=== PATIENT | female | born 1965 | race Caucasian/White ===

== ENCOUNTER 2021-02-17 18:00 | Emergency (ER) | payer OTHER ==
--- OUTSIDE RECORDS SUMMARY | 2021-02-17 18:01 | XMS REPORT | Continuity of Care Document ---
:1965 Author Organization [facility] t Address [address] [place] [address] Care Team Providers Name Role Phone Unavailable Unavailable Unavailable Payers Payer Name Policy Type Policy Number Effective Date Expiration Date S ource Problems This patient has no known problems. Allergies, Adverse Reactions, Alerts Allergy Allergy Status Severity Reaction(s) Onset Inactive Treating Comm ents Source Name Type Date Date Clinician No Known DA Active U [facility] Allergie 2-11 Clear s 00:00: [place] [address] [facility] Medications This patient has no known medications. Procedures This patient has no known procedures. Results This patient has no known results.
[2021-02-17 20:02] LABS: Absolute Lymphocytes (CBC) 2.1 K/uL (0.7-4.9); Basophils % 0.5 % (0-1.3); Lymphocytes % 25.5 % (15.3-44.8); MPV 8.8 fL (7.6-11.3); RBC Red Blood Cell Count 4.79 M/uL (3.86-4.86)
[2021-02-17 20:03] LABS: Urine Blood Negative (Negative); Urine Glucose Negative (Negative); Urine Protein Negative (Negative); Urine Specific Gravity 1.025 (1.005-1.030); Urine pH 5.5 (5.0-7.0)
[2021-02-17 20:05] LABS: Protime INR 0.97
[2021-02-17 20:19] LABS: ALT/SGPT 24 U/L (12-78); AST/SGOT 15 U/L (15-37); Albumin 4.4 g/dL (3.4-5.0); Alkaline Phosphatase 108 U/L (45-117); BUN Blood Urea Nitrogen 17 mg/dL (7-18); Bicarbonate 28 mmol/L (21-32); Bilirubin Direct < 0.1 mg/dL (0-0.2); Bilirubin Total 0.4 mg/dL (0.2-1.0); Glucose Level 85 mg/dL (74-106); Potassium 3.8 mmol/L (3.5-5.1); Sodium Level 142 mmol/L (136-145)
[2021-02-17 20:34] LABS: Barbiturates NEGATIVE (NEGATIVE); Benzodiazepines NEGATIVE (NEGATIVE); Cocaine NEGATIVE (NEGATIVE); METHAMPHETAM NEGATIVE (NEGATIVE); Methadone NEGATIVE (NEGATIVE); Opiates NEGATIVE (NEGATIVE); Phencyclidine NEGATIVE (NEGATIVE); THC Cannibis NEGATIVE (NEGATIVE)
[2021-02-17 20:37] LABS: Urine Bacteria <20 /HPF (<20); Urine RBC <5 /HPF (NONE SEEN)
[2021-02-17 20:38] LABS: Urine Mucus LIGHT /HPF (NONE SEEN)
[2021-02-17] MEDS ORDERED: CEPHALEXIN 250 MG CAP ONE (21:27)
--- NOTE | 2021-02-17 23:18 | EDPHYS ---
Physician Documentation [facility] Name: Yanique Sky Age: 55 yrs Sex: Female : 1965 Arrival Date: 02/17/2021 Time: 18:08 Bed 4 Private MD: ED Physician Tommie Bhardwaj HPI: 02/17 22:05 This 55 yrs old Female presents to ER via Ambulatory with complaints of mh7 Mental Health. 22:05 The patient presents to the emergency department with depression, over a relationship, mh7 thinks significant other is cheating. 22:06 Onset: The symptoms/episode began/occurred 2 week(s) ago, and became worse 1 week(s) mh7 ago. Past psychiatric history: Prior diagnosis: no previous psychiatric diagnosis known, Psychiatric medications include: none, Primary psychiatric physician: the patient does not have a primary psychiatric physician, the patient has not had a prior suicide gesture, the patient does not have a previous inpatient psychiatric history, the patient's last psychiatric treatment was none. Associated signs and symptoms: Pertinent negatives: abdominal pain, anxiety, chest pain, chills, delusions, fever, hallucinations, headache, homicidal ideation, nausea, night sweats, palpitations, paranoia, shortness of breath, substance abuse, tremor, vomiting. Severity of symptoms: At their worst the symptoms were moderate 4 day(s) ago, in the emergency department the symptoms are unchanged. Historical: - Allergies: 19:00 No Known Allergies; vg1 - Home Meds: 19:00 Clonazepam Oral [Active]; vg1 - PMHx: 19:00 None; vg1 - Immunization history:: Adult Immunizations up to date. - Social history:: Smoking status: Patient denies any tobacco usage or history of. ROS: 22:06 Constitutional: Negative for fever, chills, and weight loss, Eyes: Negative for injury, mh7 pain, redness, and discharge, ENT: Negative for injury, pain, and discharge, Neck: Negative for injury, pain, and swelling, Cardiovascular: Negative for chest pain, palpitations, and edema, Respiratory: Negative for shortness of breath, cough, wheezing, and pleuritic chest pain, Abdomen/GI: Negative for abdominal pain, nausea, vomiting, diarrhea, and constipation, Back: Negative for injury and pain, : Negative for injury, bleeding, discharge, and swelling, MS/Extremity: Negative for injury and deformity, Skin: Negative for injury, rash, and discoloration, Neuro: Negative for headache, weakness, numbness, tingling, and seizure, Allergy/Immunology: Negative for hives, rash, and allergies, Endocrine: Negative for neck swelling, polydipsia, polyuria, polyphagia, and marked weight changes, Hematologic/Lymphatic: Negative for swollen nodes, abnormal bleeding, and unusual bruising. Exam: 22:06 Head/Face: Normocephalic, atraumatic. Eyes: Pupils equal round and reactive to light, mh7 extra-ocular motions intact. Lids and lashes normal. Conjunctiva and sclera are non-icteric and not injected. Cornea within normal limits. Periorbital areas with no swelling, redness, or edema. Neck: Trachea midline, no thyromegaly or masses palpated, and no cervical lymphadenopathy. Supple, full range of motion without nuchal rigidity, or vertebral point tenderness. No Meningismus. Chest/axilla: Normal chest wall appearance and motion. Nontender with no deformity. No lesions are appreciated. Cardiovascular: Regular rate and rhythm with a normal S1 and S2. No gallops, murmurs, or rubs. Normal PMI, no JVD. No pulse deficits. Respiratory: Lungs have equal breath sounds bilaterally, clear to auscultation and percussion. No rales, rhonchi or wheezes noted. No increased work of breathing, no retractions or nasal flaring. Abdomen/GI: Soft, non-tender, with normal bowel sounds. No distension or tympany. No guarding or rebound. No evidence of tenderness throughout. Back: No spinal tenderness. No costovertebral tenderness. Full range of motion. Skin: Warm, dry with normal turgor. Normal color with no rashes, no lesions, and no evidence of cellulitis. MS/ Extremity: Pulses equal, no cyanosis. Neurovascular intact. Full, normal range of motion. Neuro: Awake and alert, GCS 15, oriented to person, place, time, and situation. Cranial nerves II-XII grossly intact. Motor strength 5/5 in all extremities. Sensory grossly intact. Cerebellar exam normal. Normal gait. 22:06 Constitutional: The patient appears in no acute distress, alert, awake, Tearful 22:06 Psych: Behavior/mood is cooperative, depressed, Affect is calm, Oriented to person, place, time, Patient has no thoughts/intents to harm self or others. Judgement / Insight is normal. Memory is normal. Delusions/hallucinations are not present. Vital Signs: 18:49 BP 151 / 96; Pulse 85; Resp 18; Temp 97.9; Pulse Ox 97% ; Weight 68.04 kg; Height 5 ft. vg1 3 in. (160.02 cm); 20:54 BP 149 / 89; Pulse 78; Resp 18; Pulse Ox 98% on R/A; ak2 22:28 BP 114 / 68; Pulse 66; Resp 81; Pulse Ox 98% on R/A; ak2 23:36 BP 125 / 95; Pulse 60; Resp 16; Pulse Ox 98% ; rr5 18:49 Body Mass Index 26.57 (68.04 kg, 160.02 cm) vg1 MDM: 23:13 Differential diagnosis: depression, Suicidal ideation, homicidal ideation. Data [facility] reviewed: vital signs, nurses notes, lab test result(s), CBC, electrolytes, urinalysis. Data interpreted: Pulse oximetry: on room air is 98 %. Interpretation: normal. Counseling: I had a detailed discussion with the patient and/or guardian regarding: the historical points, exam findings, and any diagnostic results supporting the discharge/admit diagnosis, lab results, the need for outpatient follow up, to return to the emergency department if symptoms worsen or persist or if there are any questions or concerns that arise at home. Response to treatment: the patient's symptoms have markedly improved after treatment. 23:17 Patient medically screened. [facility] 02/17 19:43 Order name: Acetaminophen [facility] 02/17 19:43 Order name: Basic Metabolic Panel [facility] 02/17 19:43 Order name: CBC with Diff [facility] 02/17 19:43 Order name: ETOH Level; Complete Time: 22:[address] [facility] 02/17 19:43 Order name: Hepatic Function; Complete Time: 22:[address] [facility] 02/17 19:43 Order name: PT-INR; Complete Time: 22:[address] [facility] 02/17 19:43 Order name: Ptt, Activated; Complete Time: 22:[address] [facility] 02/17 19:43 Order name: Salicylate; Complete Time: 22:[address] [facility] 02/17 19:43 Order name: Urine Drug Screen; Complete Time: 22:35 5 02/17 19:44 Order name: Acetaminophen Level; Complete Time: 22:35 EDMS 02/17 19:44 Order name: Basic Metabolic Panel; Complete Time: 22:35 EDMS 02/17 19:44 Order name: CBC with Automated Diff; Complete Time: 22:35 EDMS 02/17 20:03 Order name: Urine Dipstick-Ancillary; Complete Time: 22:35 EDPA 02/17 20:07 Order name: Urine Microscopic Only rr 02/17 19:43 Order name: EKG; Complete Time: 19:44 rr5 02/17 19:43 Order name: EKG - Nurse/Tech; Complete Time: 19:50 rr5 02/17 19:43 Order name: IV Saline Lock; Complete Time: 19:50 5 02/17 19:43 Order name: Labs collected and sent; Complete Time: 19:50 5 02/17 19:43 Order name: Suicide Precautions; Complete Time: 19:50 5 02/17 19:43 Order name: Suicide Screening ([place]); Complete Time: 19:50 5 02/17 19:43 Order name: Urine Dipstick-Ancillary (obtain specimen); Complete Time: 20:07 5 02/17 19:43 Order name: Urine Test (obtain specimen); Complete Time: 20:07 5 02/17 20:07 Order name: Urine Culture [facility] 02/17 20:08 Order name: Urine Microscopic Only; Complete Time: 22:35 EDPA 02/17 20:08 Order name: Urine Culture EDPA 02/17 22:45 Order name: SARS-COV-2 RT PCR; Complete Time: 23:06 EDMS Administered Medications: 21:09 Drug: KeFLEX (cephalexin) 500 mg Route: PO; rr5 22:10 Follow up: Response: No adverse reaction rr5 Disposition Summary: 02/17/21 23:17 Discharge Ordered Location: Home [facility] Problem: an ongoing problem [facility] Symptoms: have improved [facility] Condition: Stable [facility] Diagnosis - Depression 7 - UTI/ Urinary tract infection, site not specified 7 Followup: [facility] - With: Private Physician - When: 1 - 2 days - Reason: Worsening of condition, Recheck today's complaints, Continuance of care, Re-evaluation by your physician Followup: [facility] - With: Juan Pablo Whitfield MD - When: 1 - 2 days - Reason: Worsening of condition, Recheck today's complaints Discharge Instructions: - Discharge Summary Sheet [facility] - Urinary Tract Infection, Adult, Gtem-[id number] [facility] - Major Depressive Disorder, Adult, [id number]-[id number] [facility] Forms: - Medication Reconciliation Form [facility] - Thank You Letter [facility] - Antibiotic Education [facility] - Prescription Opioid Use [facility] Prescriptions: - Cephalexin 500 mg Oral Capsule - take 1 capsule by ORAL route every 12 hours for 7 days; 14 capsule; Refills: 0, [facility] Product Selection Permitted Signatures: Dispatcher [employer] Levar Loving RN RN rr5 Aleshia Faith RN RN vg1 Tommie Bhardwaj MD MD [facility] Corrections: (The following items were deleted from the chart) 21:38 21:17 CORONAVIRUS+MR.LAB.BRZ ordered. EDPA EDMS
--- NOTE | 2021-02-17 23:18 | ER ---
Nurse's Notes [facility] Name: Yanique Sky Age: 55 yrs Sex: Female : 1965 Arrival Date: 02/17/2021 Time: 18:08 Bed 4 Private MD: Diagnosis: Depression;UTI/ Urinary tract infection, site not specified Presentation: 02/17 18:49 Chief complaint: Patient states: "For two years Mayela been trying to get some help vg1 because I have so much built up anger; I cry, Im depressed, I want to hurt people sometimes and sometimes I'm suicidal but of course I have suicidal thoughts but I'm not going to act on it. I called [facility] and spoke with Matilda' and they told me to come into the ED to get the intake process done." Pt denies SI/HI. Coronavirus screen: Client denies travel out of the [place] in the last 14 days. Ebola Screen: Patient negative for fever greater than or equal to 101.5 degrees Fahrenheit, and additional compatible Ebola Virus Disease symptoms. Initial Sepsis Screen: Does the patient meet any 2 criteria? No. Patient's initial sepsis screen is negative. Does the patient have a suspected source of infection? No. Patient's initial sepsis screen is negative. Risk Assessment: Do you want to hurt yourself or someone else? Patient reports no desire to harm self or others. Onset of symptoms was February 17, 2021. 18:49 Method Of Arrival: Ambulatory vg1 18:49 Acuity: JERZY 3 vg1 Triage Assessment: 19:00 General: Appears in no apparent distress. uncomfortable, Behavior is cooperative, vg1 anxious, crying. Pain: Denies pain. Historical: - Allergies: 19:00 No Known Allergies; vg1 - Home Meds: 19:00 Clonazepam Oral [Active]; vg1 - PMHx: 19:00 None; vg1 - Immunization history:: Adult Immunizations up to date. - Social history:: Smoking status: Patient denies any tobacco usage or history of. Screenin:51 Abuse screen: Denies threats or abuse. Denies injuries from another. Nutritional rr5 screening: No deficits noted. Tuberculosis screening: No symptoms or risk factors identified. Fall Risk IV access (20 points). Total Phipps Fall Scale indicates No Risk (0-24 pts). Assessment: 19:39 General: Appears in no apparent distress. comfortable, Behavior is calm, cooperative, rr5 appropriate for age, episodes of suicidal and homicidal ideation, denies suicidal or homicidal right now. Pain: Denies pain. Neuro: Level of Consciousness is awake, alert, obeys commands, Oriented to person, place, time. Cardiovascular: Capillary refill < 3 seconds Patient's skin is warm and dry. Respiratory: Airway is patent Respiratory effort is even, unlabored, Respiratory pattern is regular, symmetrical. Derm: Skin is intact, is healthy with good turgor, Skin temperature is warm. 20:54 Reassessment: Patient and/or family updated on plan of care and expected duration. Pain ak2 level reassessed. 21:20 Reassessment: Patient appears in no apparent distress at this time. Patient is alert, rr5 oriented x 3, equal unlabored respirations, skin warm/dry/pink. spoke to kale from [facility] information given. 22:21 Reassessment: [facility] screener at bedside. em 22:28 Reassessment: Patient and/or family updated on plan of care and expected duration. Pain ak2 level reassessed. 22:31 Reassessment: [facility] at the bedside. rr5 23:35 Reassessment: Patient appears in no apparent distress at this time. Patient is alert, rr5 oriented x 3, equal unlabored respirations, skin warm/dry/pink. discharge instruction given and explained without complaints made. Vital Signs: 18:49 BP 151 / 96; Pulse 85; Resp 18; Temp 97.9; Pulse Ox 97% ; Weight 68.04 kg; Height 5 ft. vg1 3 in. (160.02 cm); 20:54 BP 149 / 89; Pulse 78; Resp 18; Pulse Ox 98% on R/A; ak2 22:28 BP 114 / 68; Pulse 66; Resp 81; Pulse Ox 98% on R/A; ak2 23:36 BP 125 / 95; Pulse 60; Resp 16; Pulse Ox 98% ; rr5 18:49 Body Mass Index 26.57 (68.04 kg, 160.02 cm) vg1 ED Course: 18:08 Patient arrived in ED. as 19:00 Triage completed. vg1 19:00 Arm band placed on Patient placed in waiting room, Patient notified of wait time. vg1 19:38 Levar Dixon, RN is Primary Nurse. rr5 19:42 Tommie Bhardwaj MD is Attending Physician. 7 19:49 EKG done, by ED staff, reviewed by Tommie Bhardwaj MD. rr5 19:50 Inserted saline lock: 20 gauge in left forearm, using aseptic technique. Blood rr5 collected. 20:54 No provider procedures requiring assistance completed. ak2 20:55 Patient has correct armband on for positive identification. Placed in gown. Bed in low ak2 position. Patient has correct armband on for positive identification. Patient is placed in psych hold. 23:15 Juan Pablo Whitfield MD is Referral Physician. mh7 23:36 IV discontinued, intact, bleeding controlled, No redness/swelling at site. Pressure rr5 dressing applied. Administered Medications: 21:09 Drug: KeFLEX (cephalexin) 500 mg Route: PO; rr5 22:10 Follow up: Response: No adverse reaction rr5 Outcome: 23:17 Discharge ordered by MD. mh7 23:36 Discharged to home ambulatory. rr5 23:36 Condition: stable 23:36 Discharge instructions given to patient, Instructed on discharge instructions, follow up and referral plans. medication usage, Demonstrated understanding of instructions, follow-up care, medications, Prescriptions given X 1. 23:37 Patient left the ED. rr5 Addendum: 02/21/2021 12:43 Addendum: Culture Results: Positive urine culture. Phone call Attempt #1 Attempted to s s call to follow up with patient, however number on file is not a working number. If patient were to still have symptoms, it was recommended by KARLA Kemp to prescribe Augmentin 875 mg BID x 7 days. Signatures: Rafael Caicedo, RN Kayla Maldonado Shelby, RN RN Levar Dixon RN RN rr5 Aleshia Faith RN RN 1 Tommie Bhardwaj MD MD [facility] Zackary Schultz [facility] Corrections: (The following items were deleted from the chart) 02/17 21:31 21:20 Reassessment: Patient appears in no apparent distress at this time. Patient is rr5 alert, oriented x 3, equal unlabored respirations, skin warm/dry/pink. spoke to kale from [facility], she will call back as stated rr5
[2021-02-17 23:43] VITALS: TEMP 97.9
[2021-02-17 23:44] VITALS: O2SAT 98
[2021-02-17 23:48] VITALS: BP 125/95
--- NOTE | 2021-02-20 16:13 | EKG ---
Test Date: 2021-02-17 Test Time: 19:50:14 Bead Cutter: TRE MEASUREMENT RESULTS: Intervals: Rate: 80 VT: 124 QRSD: 92 QT: 376 QTc: 433 Hugo: P: 50 VT: 124 QRS: 41 T: 25 INTERPRETIVE STATEMENTS: Normal sinus rhythm Normal ECG No previous ECG available for comparison Electronically Signed On 02-20-21 16:05:34 CDT by Boston Magana
== END 2021-02-17 23:37 | disposition home or self-care (01) ==
LOC: ER 18:00
DX: F32.9 Major depressive disorder, single episode, unspecified (principal); N39.0 Urinary tract infection, site not specified; Z20.822 Contact with and (suspected) exposure to COVID-19
CPT/HCPCS: 93005; 87088; 85025; 87086; 80048; 36415; 80320; 80329 ×2; 85610; 80076; 85730; 87077; 87186; 80307; 99284; U0003; 81003; 81015

== ENCOUNTER 2023-06-06 09:27 | Emergency (ER) | payer OTHER ==
--- OUTSIDE RECORDS SUMMARY | 2023-06-06 09:32 | XMS REPORT | Continuity of Care Document ---
:1965 Author Organization [facility] t Address [address] [place] [address] Care Team Providers Name Role Phone Bob Brice Attending Clinician Unavailable Sravani Metz Admitting Clinician Unavailable Payers Payer Name Policy Type Policy Number Effective Date Expiration Date S ource Problems This patient has no known problems. Allergies, Adverse Reactions, Alerts Allergy Allergy Status Severity Reaction(s) Onset Inactive Treating Comm ents Source Name Type Date Date Clinician No Known DA Active U [facility] Allergie 2 [facility] 00:00: [address] Medications This patient has no known medications. Procedures This patient has no known procedures. Encounters Start End Encounter Admission Attending Care Care Encounter Source Date/Time Date/Time Type Type Clinicians Facility Department ID 2019-08-25 2019-08-25 [id number] [facility] 12:00:00 12:00:00 Bob Valdes [facility] Results This patient has no known results.
--- NOTE | 2023-06-06 10:26 | RAD REPORT ---
EXAM DESCRIPTION: CT - Head Brain Wo Cont - 06/06/2023 10:18 am CLINICAL HISTORY: facial droop Headache, drowsiness COMPARISON: No comparisons TECHNIQUE: All CT scans are performed using dose optimization technique as appropriate and may inclu de automated exposure control or mA/KV adjustment according to patient size. FINDINGS: No intracranial hemorrhage, hydrocephalus or extra-axial fluid collection.Mild brain atrop hy is seen. Mild chronic microvascular ischemia suspected right frontal lobe periventricular location . No areas of brain edema or evidence of midline shift. Mucosal thickening of both maxillary antra as well as anterior ethmoid air cells. The calvarium is in tact. IMPRESSION: No acute intracranial abnormality. [id number] fronto ethmoidal sinus opacification.
[2023-06-06 11:29] LABS: Hematocrit 44.4 % (36.0-45.0); MCV 85.9 fL (80-100); MPV 8.5 fL (7.6-11.3); Platelets 277 thou/uL (152-406); RBC Red Blood Cell Count 5.17 M/uL (3.86-4.86)
[2023-06-06 11:35] LABS: Protime INR 0.96
[2023-06-06 11:49] LABS: Potassium 3.8 mEq/L (3.5-5.1); Troponin High Sensitivity 4.1 pg/mL (<58.9)
--- NOTE | 2023-06-06 12:22 | EDPHYS ---
Physician Documentation [facility] Name: Yanique Sky Age: 57 yrs Sex: Female : 1965 Arrival Date: 06/06/2023 Time: 09:27 Bed 16 Private MD: ED Physician Yessenia Muñoz HPI: 06/06 12:18 This 57 yrs old Female presents to ER via Ambulatory with complaints of S/S of Possible sp3 Stroke, Redness of Eye. 12:18 57-year-old female history of asthma and hyperlipidemia presents with right-sided sp3 facial droop for 3 days and sinus congestion. She denies any other symptoms including focal weakness, change in speech, memory loss, change in gait, or any other signs or symptoms of CVA at this time. On review of systems she denies headache, trauma, fever, neck pain, chest pain, shortness of breath, back pain, abdominal pain, nausea, vomiting, diarrhea, syncope, near syncope, or any other symptoms at this time. No prior CVA history noted.. Historical: - Allergies: 10:04 No Known Allergies; jl7 - PMHx: 10:04 Asthma; Hypercholesterolemia; jl7 - Immunization history:: Adult Immunizations unknown. - Social history:: Smoking status: Patient denies any tobacco usage or history of. ROS: 12:19 Constitutional: Negative for fever, chills, and weight loss, Eyes: Negative for injury, sp3 pain, redness, and discharge, Neck: Negative for injury, pain, and swelling, Cardiovascular: Negative for chest pain, palpitations, and edema, Respiratory: Negative for shortness of breath, cough, wheezing, and pleuritic chest pain, Abdomen/GI: Negative for abdominal pain, nausea, vomiting, diarrhea, and constipation, Back: Negative for injury and pain, MS/Extremity: Negative for injury and deformity, Skin: Negative for injury, rash, and discoloration, Psych: Negative for depression, anxiety, suicide ideation, homicidal ideation, and hallucinations, Allergy/Immunology: Negative for hives, rash, and allergies, Endocrine: Negative for neck swelling, polydipsia, polyuria, polyphagia, and marked weight changes, Hematologic/Lymphatic: Negative for swollen nodes, abnormal bleeding, and unusual bruising, 12:19 All other systems are negative, Exam: 12:19 Constitutional: This is a well developed, well nourished patient who is awake, alert, sp3 and in no acute distress. Eyes: Pupils equal round and reactive to light, extra-ocular motions intact. Lids and lashes normal. Conjunctiva and sclera are non-icteric and not injected. Cornea within normal limits. Periorbital areas with no swelling, redness, or edema. ENT: Nares patent. No nasal discharge, no septal abnormalities noted. External auditory canals are clear. Oropharynx with no redness, swelling, or masses, exudates, or evidence of obstruction, uvula midline. Mucous membranes moist. Neck: Trachea midline, no thyromegaly or masses palpated, and no cervical lymphadenopathy. Supple, full range of motion without nuchal rigidity, or vertebral point tenderness. No Meningismus. Chest/axilla: Normal chest wall appearance and motion. Nontender with no deformity. No lesions are appreciated. Cardiovascular: Regular rate and rhythm with a normal S1 and S2. No gallops, murmurs, or rubs. Normal PMI, no JVD. No pulse deficits. Respiratory: Lungs have equal breath sounds bilaterally, clear to auscultation and percussion. No rales, rhonchi or wheezes noted. No increased work of breathing, no retractions or nasal flaring. Abdomen/GI: Soft, non-tender, with normal bowel sounds. No distension or tympany. No guarding or rebound. No evidence of tenderness throughout. Back: No spinal tenderness. No costovertebral tenderness. Full range of motion. Skin: Warm, dry with normal turgor. Normal color with no rashes, no lesions, and no evidence of cellulitis. MS/ Extremity: Pulses equal, no cyanosis. Neurovascular intact. Full, normal range of motion. Psych: Awake, alert, with orientation to person, place and time. Behavior, mood, and affect are within normal limits. 12:19 Head/face: 12:19 Neuro: Neurological exam demonstrates right-sided facial droop with forehead involvement. Bilateral eyes are injected with right side likely dry. Memory, gait, motor or sensory exam and lower motor neurons are all within normal limits., Vital Signs: 10:01 BP 160 / 103; Pulse 92; Resp 17; Temp 98.3; Pulse Ox 98% ; Weight 69.4 kg; Height 5 ft. jl7 3 in. ; Pain 6/10; 11:09 BP 119 / 88; Pulse 99; Resp 18; Pulse Ox 99% on R/A; eh3 12:00 BP 139 / 88; Pulse 111; Resp 18; Pulse Ox 99% on R/A; eh3 10:01 Body Mass Index 27.10 (69.40 kg, 160.02 cm) jl7 10:01 Pain Scale: Adult jl7 MDM: 10:08 Patient medically screened. [facility] 12:20 Data reviewed: vital signs, lab test result(s), EKG, radiologic studies. ED course: sp3 57-year-old female with right-sided facial droop without any other neurological symptoms. 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 CT scan demonstrates no significant intracranial abnormality and and with this clinically I ruled out CVA and ICH/SAH. I have extensively educated patient on CVA versus Craven's palsy and signs and symptoms to return. We will follow-up patient with Dr. Bucio. In the meantime I will prescribe acyclovir, eyedrops and prednisone and safely discharge patient home.. 06/06 10:10 Order name: Basic Metabolic Panel; Complete Time: 12:17 [facility] 06/06 10:10 Order name: CBC with Diff; Complete Time: 11:43 [facility] 06/06 10:10 Order name: High Sensitivity Troponin; Complete Time: 12:17 [facility] 06/06 10:10 Order name: Protime (+inr); Complete Time: 11:43 [facility] 06/06 10:10 Order name: Ptt, Activated; Complete Time: 11:43 [facility] 06/06 10:10 Order name: CT Head Brain wo Cont; Complete Time: 11:28 [facility] 06/06 10:10 Order name: EKG; Complete Time: 10:11 [facility] 06/06 10:10 Order name: Cardiac monitoring; Complete Time: 11:35 [facility] 06/06 10:10 Order name: EKG - Nurse/Tech; Complete Time: 10:47 [facility] 06/06 10:10 Order name: IV Saline Lock; Complete Time: 11:27 [facility] 06/06 10:10 Order name: Labs collected and sent; Complete Time: 10:49 [facility] 06/06 10:10 Order name: NPO; Complete Time: 10:47 [facility] 06/06 10:10 Order name: O2 Sat Monitoring; Complete Time: 10:47 sp3 06/06 11:08 Order name: Labs - recollect needed: recollect all tubes; Complete Time: 11:27 bd Administered Medications: No medications were administered Disposition Summary: 06/06/23 12:21 Discharge Ordered Notes: Location: Home sp3 Condition: Stable sp3 Diagnosis - Craven's palsy sp3 Followup: sp3 - With: Rodger Bucio MD - When: Upon discharge from the Emergency Department - Reason: Recheck today's complaints, Continuance of care Discharge Instructions: - Discharge Summary Sheet sp3 - Craven's Palsy, Adult sp3 Forms: - Medication Reconciliation Form sp3 - Thank You Letter sp3 - Antibiotic Education sp3 - Prescription Opioid Use sp3 - Patient Portal Instructions sp3 - Leadership Thank You Letter sp3 Prescriptions: - artificial tear([id number]) 0.1-0.3-0.2 % Ophthalmic drops - instill 2 drop OPHTHALMIC route every 6 hours; 10 milliliter; Refills: 0, sp3 Product Selection Permitted - Valtrex 500 mg Oral tablet - take 1 tablet ORAL route every 12 hours for 5 days; 10 tablet; Refills: 0, sp3 Product Selection Permitted - Prednisone 20 mg Oral Tablet - take 2 tablets ORAL route once daily for 5 days; 10 tablet; Refills: 0, Product sp3 Selection Permitted Signatures: Dispatcher [employer] Zina Ken Jahala RN RN jl7 Yessenia Muñoz MD MD sp3 Keisha Blanchard RN RN eh3
--- NOTE | 2023-06-06 12:22 | ER ---
Nurse's Notes [facility] Name: Yanique Sky Age: 57 yrs Sex: Female : 1965 Arrival Date: 06/06/2023 Time: 09: Bed 16 Private MD: Diagnosis: Craven's palsy Presentation: 06/06 09:36 Note Pt reports inability to drink from a straw, noticed it yesterday speech therapist early intervention but jl7 might have happened a week ago. Right sided droop noted to bottom lip. 10:01 Chief complaint: Patient states: Noticed yesterday before 0900 difficulty drinking with jl7 a straw. Pt noted to have dropping to right side of face, bottom lip and difficulty closing right eye. Right eye watery. Coronavirus screen: At this time, the client does not indicate any symptoms associated with coronavirus-19. Ebola Screen: No symptoms or risks identified at this time. No acute neurological deficit is noted. Pre-hospital glucose is not applicable to this patient. Initial Sepsis Screen: Does the patient meet any 2 criteria? No. Patient's initial sepsis screen is negative. Does the patient have a suspected source of infection? No. Patient's initial sepsis screen is negative. Risk Assessment: Do you want to hurt yourself or someone else? Patient reports no desire to harm self or others. Onset of symptoms is unknown. 10:01 Method Of Arrival: Ambulatory jl7 10:01 Acuity: JERZY 3 jl7 Triage Assessment: 10:04 Neuro: Level of Consciousness is awake, alert, obeys commands, Oriented to person, jl7 place, time, Gait is steady, Speech is normal, Facial droop on right. Stroke Activation: Symptom onset > 6 hours Physician: Stroke Attending; Name: ; Notified At: ; Arrived At: Physician: Chief Stroke Resident; Name: ; Notified At: ; Arrived At: Physician: Stroke Resident; Name: ; Notified At: ; Arrived At: Physician: ED Attending; Name: ; Notified At: ; Arrived At: Physician: ED Resident; Name: ; Notified At: ; Arrived At: Historical: - Allergies: 10:04 No Known Allergies; jl7 - PMHx: 10:04 Asthma; Hypercholesterolemia; jl7 - Immunization history:: Adult Immunizations unknown. - Social history:: Smoking status: Patient denies any tobacco usage or history of. Screenin:09 [facility] ED Fall Risk Assessment (Adult) Score/Fall Risk Level 0 - 2 = Low Risk. Abuse eh3 screen: Denies threats or abuse. Denies injuries from another. Nutritional screening: No deficits noted. Tuberculosis screening: No symptoms or risk factors identified. Assessment: 11:09 General: Appears in no apparent distress. comfortable, Behavior is calm, cooperative, eh3 appropriate for age. Pain: Denies pain. Neuro: Level of Consciousness is awake, alert, obeys commands, Oriented to person, place, time, situation, Carpet Or Rug Layer Helper are equal bilaterally Moves all extremities. Gait is steady, Speech is normal, Facial droop on right, Pupils are PERRLA, Intact. Cardiovascular: Capillary refill < 3 seconds Patient's skin is warm and dry. Respiratory: Airway is patent Respiratory effort is even, unlabored, Respiratory pattern is regular, symmetrical. GI: Abdomen is round non-distended. Derm: Skin is pink, warm \T\ dry. Musculoskeletal: Circulation, motion, and sensation intact. 12:00 Reassessment: Patient appears in no apparent distress at this time. Patient and/or eh3 family updated on plan of care and expected duration. Pain level reassessed. Patient is alert, oriented x 3, equal unlabored respirations, skin warm/dry/pink. Vital Signs: 10:01 BP 160 / 103; Pulse 92; Resp 17; Temp 98.3; Pulse Ox 98% ; Weight 69.4 kg; Height 5 ft. jl7 3 in. ; Pain 6/10; 11:09 BP 119 / 88; Pulse 99; Resp 18; Pulse Ox 99% on R/A; eh3 12:00 BP 139 / 88; Pulse 111; Resp 18; Pulse Ox 99% on R/A; eh3 10:01 Body Mass Index 27.10 (69.40 kg, 160.02 cm) jl7 10:01 Pain Scale: Adult jl7 ED Course: 09:32 Patient arrived in ED. mr 09:54 Yessenia Muñoz MD is Attending Physician. sp3 10:04 Triage completed. jl7 10:05 Arm band placed on right wrist. jl7 10:20 CT Head Brain wo Cont In Process Unspecified. EDMS 10:47 EKG done, by ED staff, reviewed by Yessenia Muñoz MD. jl7 11:01 Patient placed in an exam room, on a stretcher. ll1 11:09 Keisha Blanchard, RN is Primary Nurse. eh3 11:09 Patient has correct armband on for positive identification. Bed in low position. Call 3 light in reach. Side rails up X2. Adult w/ patient. Provided Education on: Use of call craven. Pulse ox on. NIBP on. 11:27 Inserted saline lock: 20 gauge in right antecubital area, using aseptic technique. bc6 Blood collected. 11:27 Basic Metabolic Panel Sent. bc6 11:27 CBC with Diff Sent. bc6 11:27 High Sensitivity Troponin Sent. bc6 11:27 Protime (+inr) Sent. bc6 11:27 Ptt, Activated Sent. 6 12:21 Rodger Bucio MD is Referral Physician. sp3 12:33 No provider procedures requiring assistance completed. IV discontinued, intact, eh3 bleeding controlled, No redness/swelling at site. Pressure dressing applied. Administered Medications: No medications were administered Medication: 12:33 VIS not applicable for this client. 3 Outcome: 12:21 Discharge ordered by . sp3 12:34 Discharged to home ambulatory, with family, 3 12:34 Condition: stable 12:34 Discharge instructions given to patient, Instructed on discharge instructions, follow up and referral plans. medication usage, Demonstrated understanding of instructions, follow-up care, medications, Prescriptions given X 3, 12:41 Patient left the ED. 3 Signatures: Dispatcher [employer] EDAZ NoéKathrin, Reg Reg mr ErrolTimo, RN RN jl7 Elizabet Gant RN RN ll1 Yessenia Muñoz MD MD sp3 Keisha Blanchard, RN RN 3 Melida Donnelly 6 Corrections: (The following items were deleted from the chart) 11:39 11:35 BP 119 / 88; Pulse 99bpm; Resp 18bpm; Pulse Ox 99% RA; eh3 3
[2023-06-06 16:34] VITALS: BP 139/88; TEMP 98.3; O2SAT 99
--- NOTE | 2023-06-07 15:47 | EKG ---
Test Date: 2023-06-06 Test Time: 10:49:43 Social Sciences Chair: SID MEASUREMENT RESULTS: Intervals: Rate: 83 KS: 114 QRSD: 90 QT: 374 QTc: 439 [place]: P: KS: 114 QRS: 132 T: 148 INTERPRETIVE STATEMENTS: Normal sinus rhythm Low voltage QRS Left posterior fascicular block Septal infarct, age undetermined Abnormal ECG Compared to ECG 02/17/2021 19:50:14 Low QRS voltage now present Left posterior fascicular block now present Myocardial infarct finding now present Electronically Signed On 06-07-23 15:43:19 CDT by Nhan Chu
== END 2023-06-06 12:41 | disposition home or self-care (01) ==
LOC: ER 09:27
DX: G51.0 Bell's palsy (principal); J45.909 Unspecified asthma, uncomplicated; E78.5 Hyperlipidemia, unspecified; E78.00 Pure hypercholesterolemia, unspecified
CPT/HCPCS: 36415; 70450; 80048; 84484; 85025; 85610; 85730; 93005